=== PATIENT | female | born 2000 | race Caucasian/White ===

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

== ENCOUNTER 2023-04-23 17:28 | Emergency (ER) | payer OTHER, SELFPAY ==
[2023-04-23 17:29] VITALS: BP 138/80; PULSE 79; RESP 18; TEMP 37; O2SAT 100; BMI 44.2
--- NOTE | 2023-04-23 17:50 | EXP.UTC ---
Discharge Plan Disposition Patient Disposition: Home, Self-Care Condition: Good Prescriptions Prescriptions: New clindamycin HCl 300 mg capsule 300 mg PO Q8H 7 Days Qty: 21 0RF No Action ondansetron HCl 4 MG tablet 4 mg PO TIDP PRN (Reason: Nausea) Qty: 9 0RF oxymetazoline 15 ML bottle 15 ml NS BID PRN (Reason: Nasal Congestion) Qty: 15 0RF Referrals Follow up/Referrals: Provider,Referral, MD [Primary Care Provider] - See instructions Activity Restrictions/Add. Instructions Additional Instructions/Restrictions: Take medication as prescribed Use Aquaphor on the tattoo apply thin layer on tattoo 2-3 times daily Follow up with your Family Doctor if no improvement Return if needed Clinical Impressions Clinical Impression: Cellulitis Qualifiers: Site of cellulitis: unspecified site Qualified Code(s): L03.90 - Cellulitis, unspecified Instructions Patient Instructions: Cellulitis, Clindamycin Discharge ED Provider: Mary Snow [facility] [place] General Stated complaint: poss infected tattoo Mode of Arrival: Ambulatory Source of Information: Patient Limitations: No Limitations Time Seen by Provider: 04/23/23 17:50 Description of Symptoms (Recalled from Triage Doc. by RN): Patient reports possible infected tattoo. States she got the tattoo in a kitchen last Sunday. HEENT Symptoms (Recalled from RN notes): No Resp Symptoms (Recalled from RN notes): No Skin Symptoms (Recalled from RN notes): Yes MS Symptoms (Recalled from RN notes): No Functional Status (Recalled from RN notes): wnl History of Present Illness Provider Complaint: Patient states she got a tattoo in a kitchen not a shop last week States that since then it started looking red, swelling and having blister like lesions on it States that she thought it would get better but has continued to get worse so today she came in to see if she needed some antibiotics to help with the infection Related Data Previous Rx's Medication Instructions Recorded ondansetron HCl 4 mg tablet 4 mg PO TIDP PRN Nausea #9 tabs 08/11/21 oxymetazoline 0.05 % nasal spray 15 ml NS BID PRN Nasal Congestion 08/11/21 #15 mL clindamycin HCl 300 mg capsule 300 mg PO Q8H 7 days #21 caps 04/23/23 Allergies Allergy/AdvReac Type Severity Reaction Status Date / Time No Known Allergies Allergy Unverified 09/04/17 14:15 Worker's Comp Is this a Worker's Comp case?: No [facility] Disclaimer: The information contained in this section may have been updated after the patient was seen, as this information can be updated by other users. 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 Smoking Status: Never smoker alcohol intake: never substance use type: denies use current occupational status: employed Travel in the last 8 weeks: None ROS Obtained: Yes All systems reviewed & no additional complaints except as documented and Yes Systems reviewed as appropriate & no additional complaints except as documented Constitutional Constitutional: Reports system reviewed and no additional complaints, except as documented and Reports as per HPI ENT Ears, Nose, Mouth, and Throat: Reports system reviewed and no additional complaints, except as documented and Reports as per HPI Cardiovascular Cardiovascular: Reports system reviewed and no additional complaints, except as documented and Reports as per HPI Respiratory Respiratory: Reports system reviewed and no additional complaints, except as documented and Reports as per HPI Gastrointestinal Gastrointestingal: Reports system reviewed and no additional complaints, except as documented and as per HPI Integumentary/Breasts Skin/Breast: Reports system reviewed and no additional complaints, except as documented and Reports as per HPI Comments: redness, mild swelling and blisters on new tattoo that she got at home last week Physical Exam General General appearance: alert and in no apparent distress Respiratory Respiratory exam: Present normal lung sounds bilate
[2023-04-23 18:04] VITALS: BP 138/80; PULSE 79; RESP 18; TEMP 37; O2SAT 100
== END 2023-04-23 18:05 | disposition home or self-care (01) ==
PROVIDERS: Emergency Provider Nurse Practitioner
DX: L03.113 Cellulitis of right upper limb (principal)
CPT/HCPCS: 99204; 99212; G0463

== ENCOUNTER 2023-11-09 17:23 | Emergency (ER) | payer OTHER, SELFPAY ==
[2023-11-09] VITALS (9 sets, daily range): BP systolic 120–152; BP diastolic 80–93; PULSE 67–93; RESP 18–19; TEMP 36.8–36.9; O2SAT 96–98; BMI 44.6; BMI 446.5
[2023-11-09 17:47] LABS: Microscopic, Urine URINE MICROSCOPIC (MICROSCOPIC)
[2023-11-09 17:53] LABS: Coronavirus 19, PCR Not Detected (NotDetected); Influenza A, PCR Not Detected (NotDetected); Influenza B, PCR Not Detected (NotDetected)
[2023-11-09 17:55] LABS: Basophils % 0.2 % (0.1-2.0); Eosinophils # 0.1 K/mm3 (0.0-0.4); Eosinophils % 0.8 % (0.1-12.0); Hematocrit 44.9 % (37.0-47.0); Hemoglobin 14.4 g/dL (12.2-16.2); Lymphocytes # 1.7 K/mm3 (0.7-4.5); Lymphocytes % 12.9 % (10-50); Mean Corpuscular HGB Conc 32.1 g/dL (31.8-35.4); Mean Corpuscular Hemoglobin 27.9 pg (27.0-31.2); Mean Corpuscular Volume 86.9 fl (81-99); Mean Platelet Volume 7.8 fl (7.4-10.4); Monocytes # 0.6 K/mm3 (0.1-1.0); Neutrophils # 10.4 K/mm3 (1.8-7.8); Neutrophils % 81.1 % (37.0-80.0); Platelet Count 307 K/mm3 (142-424); Red Blood Count 5.17 M/mm3 (4.20-5.40); Red Cell Distribution Width 14.3 % (11.5-17.5); White Blood Count 12.8 K/mm3 (4.8-10.8)
[2023-11-09 18:05] LABS: Alanine Aminotransferase 35 U/L (12-78); Albumin Level 4.2 g/dl (3.5-5.0); Albumin/Globulin Ratio 1.2 (1.1-1.8); Alkaline Phosphatase 95 U/L (38-126); Amylase 59 U/L (30-110); Anion Gap 8.5 mEq/L (5-15); Aspartate Amino Transferase 32 U/L (14-36); Bilirubin,Total 0.4 mg/dl (0.2-1.3); Blood Urea Nitrogen 13 mg/dl (7-17); Calcium 9.2 mg/dl (8.4-10.2); Carbon Dioxide 30 mmol/L (22.0-30.0); Chloride 104 mmol/L (98-107); Creatinine Clearance Estimated 59 mL/min (50-200); Estimated Glomerular Filt Rate 52 ml/min (>60); GFR (African American) 63 ML/MIN (>60); Globulin 3.5 g/dL (1.3-3.2); Glucose 91 mg/dl (74-100); Lipase 39 U/L (23-300); Potassium 4.5 mmoL/L (3.5-5.1); Sodium 138 mmol/L (136-145); Total Protein,Serum 7.7 g/dl (6.3-8.2)
[2023-11-09 18:09] LABS: Appearance,Urine CLEAR (Clear); Bilirubin,Urine Negative (Negative); Blood, Urine 1+ (Negative); Color,Urine YELLOW (Yellow); Glucose,Urine (UA) Negative (Negative); Ketones,Urine Negative (Negative); Leukocyte Esterase,Urine Negative (Negative); Nitrate,Urine POSITIVE (Negative); PH,Urine 6.5 (5.0-8.5); Protein,Urine Negative (Negative); Urobilinogen,Urine 0.2 EU/dl (0.2)
--- NOTE | 2023-11-09 18:14 | PC.NURSE ---
rounded on pt states no complaints at this time mom at bs
[2023-11-09 18:50] LABS: HCG Qualitative, Serum Negative (Negative)
[2023-11-09 18:56] LABS: Bacteria,Urine 1+ /lpf; RBC,Urine Occasional #/hpf (0-3); Squamous Epithelial Cell,Urine Occasional #/hpf (0-5); WBC,Urine Occasional #/hpf (0-3)
--- NOTE | 2023-11-09 18:56 | CT_ITS ---
PROCEDURE INFORMATION: Exam: CT Abdomen And Pelvis Without Contrast Exam date and time: 11/09/2023 7:33 PM Age: 23 years old Clinical indication: Abdominal pain; Flank; Right; Additional info: Left flank pain TECHNIQUE: Imaging protocol: Computed tomography of the abdomen and pelvis without contrast. Radiation optimization: All CT scans at this facility use at least one of these dose optimization techniques: automated exposure control; mA and/or kV adjustment per patient size (includes targeted exams where dose is matched to clinical indication); or iterative reconstruction. COMPARISON: No relevant prior studies available. FINDINGS: Lungs: No consolidation, lung nodules, or pleural effusions. Liver: No mass. No evidence of fat deposition. No surrounding fluid. Gallbladder and bile ducts: No calcified stones or wall thickening. No ductal dilation. Pancreas: No masses. No ductal dilation. Spleen: . Spleen measures 13.5 cm. No masses or pericapsular fluid. 1 cm accessory splenule inferior to the splenic hilum. Adrenal glands: No mass. Kidneys and ureters: A 3 mm stone in the mid left ureter at the L5 level causes mild proximal hydroureteronephrosis no other kidney stones. No solid renal masses. Stomach and bowel: No intestinal masses, bowel wall thickening, or abnormal dilatation. Appendix: No evidence of appendicitis. Intraperitoneal space: No free air. No masses or significant fluid collection. Vasculature: No abdominal aortic aneurysm. No other significant abnormalities. Lymph nodes: No enlarged lymph nodes. Urinary bladder: No masses or asymmetric wall thickening. Reproductive: Anteverted uterus is appropriate in size and shape and has no myometrial masses. Bones/joints: Mild spinal stenosis at L5-S1 due to posterior osteophytes. No fractures or focal bone lesions. Soft tissues: No masses or other abnormalities. IMPRESSION: 1. Obstructing 3 mm stone in the mid left ureter. 2. Borderline splenomegaly. 3. No other acute findings in the abdomen and pelvis. 4. Mild spinal stenosis at L5-S1 due to posterior osteophytes
[2023-11-09] MEDS: ACETAMINOPHEN 1,000MG/100ML VIAL 1000 MG IV (19:27)
[2023-11-09] MEDS: CEFTRIAXONE 1 GM 1 GM in 0.9 % SODIUM CHLORIDE 50 ML IV (19:28)
[2023-11-09] MEDS: ONDANSETRON 4MG/2ML VIAL 4 MG IV (19:28)
[2023-11-09] MEDS: KETOROLAC 30MG/ML VIAL 15 MG IV (19:28)
[2023-11-09] MEDS: LACTATED RINGERS 1000ML 1,000 ML 999 ML IV (20:00)
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
== END 2023-11-09 20:46 | disposition home or self-care (01) ==
PROVIDERS: Emergency Provider Emergency Medicine; PCP Family Medicine
DX: N20.0 Calculus of kidney (principal); R10.9 Unspecified abdominal pain; R11.2 Nausea with vomiting, unspecified; R19.7 Diarrhea, unspecified; F17.200 Nicotine dependence, unspecified, uncomplicated
CPT/HCPCS: 74176; 80053; 81001; 82150; 83690; 84703; 85025; 87636; 96361; 96365; 96375; 99285; J0131; J0696; J2405

== ENCOUNTER 2024-07-14 06:37 | Emergency (ER) | payer OTHER, SELFPAY ==
[2024-07-14 06:38] VITALS: BP 135/90; PULSE 64; RESP 18; TEMP 36.6; O2SAT 95; BMI 40.7
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
[2024-07-14 06:42] VITALS: BP 135/90; PULSE 63; O2SAT 99
--- NOTE | 2024-07-14 06:48 | XR_ITS ---
PROCEDURE INFORMATION: Exam: XR Left Ribs with PA Chest Exam date and time: 07/14/2024 7:26 AM Age: 23 years old Clinical indication: Pain; Other: Left rib; Additional info: Chest pain, fall last week TECHNIQUE: Imaging protocol: Radiologic exam of the left ribs with PA chest. Views: 3 views COMPARISON: CR XR CHEST PORTABLE 08/11/2021 1:10 PM FINDINGS: Lungs: Unremarkable. No consolidation. Pleural spaces: Unremarkable. No pleural effusion. No pneumothorax. Heart/Mediastinum: Unremarkable. No cardiomegaly. Bones/joints: Unremarkable. IMPRESSION: No acute findings.
[2024-07-14] MEDS: ACETAMINOPHEN 500MG TAB 1000 MG PO (06:54)
[2024-07-14] MEDS: IBUPROFEN 600 MG TABLET PO (06:54)
[2024-07-14 07:27] LABS: Urine Pregnancy, HCG Qual. Negative (Negative)
--- NOTE | 2024-07-14 07:33 | PC.NURSE ---
RADIOLOGY NOTIFIED OF NEGATIVE TEST, XR ORDERS
--- NOTE | 2024-07-14 07:35 | PC.NURSE ---
PT TO XR
--- NOTE | 2024-07-14 07:45 | PC.NURSE ---
PT RETURNED FROM XR
--- NOTE | 2024-07-14 07:55 | PC.NURSE ---
PT PROVIDED TV REMOTE
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
--- NOTE | 2024-07-14 08:53 | PC.NURSE ---
DR CALHOUN AT BEDSIDE TO UPDATE PT
[2024-07-14 08:56] VITALS: BP 106/81; PULSE 61; RESP 18; TEMP 37.1; O2SAT 97
== END 2024-07-14 08:59 | disposition home or self-care (01) ==
PROVIDERS: Emergency Medicine; Emergency Provider Student in an Organized Health Care Education/Training Program
DX: R07.81 Pleurodynia (principal); M54.2 Cervicalgia; R07.82 Intercostal pain; W19.XXXA Unspecified fall, initial encounter; Y93.89 Activity, other specified; Y92.9 Unspecified place or not applicable
CPT/HCPCS: 71101; 81025; 99283

== ENCOUNTER 2024-08-02 15:51 | Emergency (ER) | payer OTHER, SELFPAY ==
[2024-08-02 15:53] VITALS: BP 132/79; PULSE 82; RESP 18; TEMP 36.8; O2SAT 100; BMI 35.9
--- NOTE | 2024-08-02 15:58 | XR_ITS ---
PROCEDURE INFORMATION: Exam: XR Left Foot Exam date and time: 08/02/2024 4:10 PM Age: 23 years old Clinical indication: Injury or trauma; Fall; Blunt trauma; Foot; Left TECHNIQUE: Imaging protocol: Radiologic exam of the left foot. Views: 3 or more views. COMPARISON: CR Ankle L 08/02/2024 4:09 PM FINDINGS: Bones/joints: There is no evidence of acute fracture or dislocation. Joint spaces appear preserved. Soft tissues: There is mild soft tissue prominence involving the midfoot raising the question of mild edema. No subcutaneous emphysema or radiopaque foreign bodies. IMPRESSION: No acute posttraumatic osseous injury.
--- NOTE | 2024-08-02 15:58 | XR_ITS ---
PROCEDURE INFORMATION: Exam: XR Left Ankle Exam date and time: 08/02/2024 4:09 PM Age: 23 years old Clinical indication: Injury or trauma; Fall; Blunt trauma; Ankle; Left TECHNIQUE: Imaging protocol: Radiologic exam of the left ankle. Views: 1 or 2 views. COMPARISON: No relevant prior studies available. FINDINGS: Bones/joints: There is no evidence of acute fracture or dislocation. Joint spaces appear preserved. Soft tissues: There is mild soft tissue edema. No subcutaneous emphysema or radiopaque foreign bodies. IMPRESSION: No acute posttraumatic osseous injury.
--- NOTE | 2024-08-02 16:10 | HMH.EDGENADL ---
Discharge Plan Disposition Patient Disposition: Home, Self-Care Condition: Good Prescriptions Prescriptions: No Action metformin 500 mg tablet extended release 24 hr 500 mg PO DAILY escitalopram oxalate 10 mg tablet 10 mg PO DAILY tamsulosin [Flomax] 0.4 mg capsule 0.4 mg PO DAILY Qty: 10 0RF methocarbamol 500 mg tablet 500 mg PO Q6H PRN (Reason: pain) Qty: 30 0RF lidocaine 5 % adhesive patch,medicated 1 patch topical DAILY PRN (Reason: pain) Qty: 30 0RF Rx Instructions: leave on most painful area for up to 12 hrs Referrals Follow up/Referrals: Shivani Delgado PA [Primary Care Provider] - See instructions Activity Restrictions/Add. Instructions Additional Instructions/Restrictions: Weight bearing as tolerated rest Ice with cold pack for 20 minutes remove may repeat for comfort every hour Eulogio wrap for support and swelling no less in the shower. Be sure not too tight but not to lose either Elevate with ankle above your heart as much as possible to help reduce swelling and therefore pain Ibuprofen every 6 hours as needed for pain or inflammation. If needs something more you can take Tylenol every 4 hours as needed as long as her primary care has told he was okayed for you to take both. If improving any do not need to follow-up you can bring begin exercising 2-3 weeks after injury. Follow-up immediately if new or worsening symptoms or no noticeable improvement over the next 3-5 days. call ortho if no improvement Clinical Impressions Clinical Impression: Left ankle strain Qualifiers: Encounter type: initial encounter Qualified Code(s): S96.912A - Strain of unspecified muscle and tendon at ankle and foot level, left foot, initial encounter Stand Alone Forms Stand Alone Forms: Work/School Release Instructions Patient Instructions: DI for Ankle Sprain Print Language Print Language: Italian Discharge ED Provider: Que Nice General Adult HPI <Ana Canseco ([facility]), IMMUNOLOGIST - Last Filed: 08/02/24 16:50> General Chief complaint: Extremity Injury, Lower Stated complaint: ao 08/01 Left ankle pain Time Seen by Provider: 08/02/24 15:58 Mode of Arrival: Ambulatory Source of Information: Patient Limitations: No Limitations Description of Symptoms (Recalled from ER Triage Doc. by RN): left ankle pain. History of Present Illness HPI narrative: 23-year-old female presents for left ankle pain. Patient states last night she was going up steps and her ankle turned. Related Data Home Medications ?Medication ?Instructions ?Recorded ?Confirmed escitalopram oxalate 10 mg tablet 10 mg PO DAILY 11/09/23 11/09/23 metformin 500 mg tablet,extended 500 mg PO DAILY 11/09/23 11/09/23 release 24 hr Previous Rx's ?Medication ?Instructions ?Recorded tamsulosin 0.4 mg capsule (Flomax) 0.4 mg PO DAILY #10 caps 11/09/23 lidocaine 5 % topical patch 1 patch topical DAILY PRN pain #30 07/14/24 ea methocarbamol 500 mg tablet 500 mg PO Q6H PRN pain #30 tabs 07/14/24 Allergies Allergy/AdvReac Type Severity Reaction Status Date / Time No Known Allergies Allergy Verified 11/09/23 17:52 PFSH <Ana Marx[facility]), IMMUNOLOGIST - Last Filed: 08/02/24 16:50> PFS Disclaimer: The information contained in this section may have been updated after the patient was seen, as this information can be updated by other users. 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: Never smoker alcohol intake: never substance use type: denies use current occupational status: employed Travel in the last 8 weeks: None Other Medical History Have you received the Flu Vaccine for this season: No Have you received the Pneumonia Vaccine: No <Ana Marx[facility] IMMUNOLOGIST - Last Filed: 08/02/24 16:50> ROS Obtained: Yes Systems reviewed as appropriate & no additional complaints except as documented Musculoskeletal Musculoskeletal: Reports system reviewed and no additional complaints, except as documented, Reports as per HPI, Reports joint swelling and Reports limited range of motion Physical Exam <Ana Marx[facility]), IMMUNOLOGIST - Last Filed: 08/02/24 16:50> General General appearance: alert and in no apparent distress ENT ENT exam: Present normal exam Respiratory Respiratory exam: Present normal lung sounds bilaterally Cardiovascular Cardiovascular exam: Present regular rate and normal rhythm Extremities Exam Extremities exam: Present normal inspection, tenderness, normal capillary refill and edema Expanded Lower Extremity Exam Left: Ankle image: 1. Swelling and tender Neurological Exam Neurological exam: Present alert and oriented X3 Skin Skin exam: Present warm and intact Medical Decision Making <Fabricioelle Canseco ([facility])ASHA - Last Filed: 08/02/24 16:50> Medical Records Medical records reviewed: Yes I reviewed the patient's medical records. Screening: Per USPSTF and CDC recommendations, given the prevalence of disease in our region, it is our hospital?s policy to screen for HIV and viral Hepatitis for all patients aged 18 and over and those with ongoing risk factors. Jose Rafael Inquiry Pt receiving controlled substance: No Jose Rafael was queried for this patient: No Vital Signs: 08/02/24 15:53 08/02/24 16:52 Temperature 98.3 F 98.1 F Temperature Source Oral Pulse Rate 82 Pulse Rate [Right] 82 Respiratory Rate 18 18 Blood Pressure 134/77 Blood Pressure [Right Arm] 132/79 Blood Pressure Mean [Right Arm] 96 02 Sat by Pulse Oximetry 100 Orders (Tests/Meds): ORDERS Category Date Time Status XR ankle LT 2V Stat Exams 08/02/24 15:58 Completed XR foot LT min 3V Stat Exams 08/02/24 15:58 Completed Radiology Data #1: Image(s): Ankle Image Reviewed: Yes I reviewed the patient's radiology results Preliminary Findings: Normal/NAD Medical Decision Narrative: In summary patient is a 23-year-old female who presents to the emergency department for evaluation of left ankle pain. Patient is hemodynamically stable upon arrival, afebrile. Left ankle and foot swelling. Differential diagnosis includes sprain versus fracture. Initial workup will be conducted with x-rays of ankle and foot. Initial inventions include x-rays. Initial workup reviewed by me imaging unremarkable negative for fracture. Given this Eulogio wrap applied. I informally interpreted patient's ankle and foot x-ray <Que Nice MD - Last Filed: 08/02/24 19:48> Vital Signs: 08/02/24 15:53 08/02/24 16:52 Temperature 98.3 F 98.1 F Temperature Source Oral Pulse Rate 82 Pulse Rate [Right] 82 Respiratory Rate 18 18 Blood Pressure 134/77 Blood Pressure [Right Arm] 132/79 Blood Pressure Mean [Right Arm] 96 02 Sat by Pulse Oximetry 100 Orders (Tests/Meds): ORDERS Category Date Time Status XR ankle LT 2V Stat Exams 08/02/24 15:58 Completed XR foot LT min 3V Stat Exams 08/02/24 15:58 Completed Medical Decision Narrative: In summary patient is a 23-year-old female who presents to the emergency department for evaluation of left ankle pain. Patient is hemodynamically stable upon arrival, afebrile. Left ankle and foot swelling. Differential diagnosis includes sprain versus fracture. Initial workup will be conducted with x-rays of ankle and foot. Initial inventions include x-rays. Initial workup reviewed by me imaging unremarkable negative for fracture. Given this Eulogio wrap applied. I informally interpreted patient's ankle and foot x-ray and was negative for any acute pathology I was consulted by the MINDY, and we discussed the complexity of the problems being addressed. I approved the treatment and management plan for this patient's care in the Emergency Department, thus performing a substantive portion of the medical decision making. Que Nice MD Critical Care <Ana Canseco ([facility]), IMMUNOLOGIST - Last Filed: 08/02/24 16:50> Critical Care Time Critical Care Time: No
--- NOTE | 2024-08-02 16:16 | PC.NURSE ---
pt to xr
--- NOTE | 2024-08-02 16:25 | PC.NURSE ---
pt returned from xr
[2024-08-02 16:52] VITALS: BP 134/77; PULSE 82; RESP 18; TEMP 36.7; O2SAT 99
== END 2024-08-02 16:56 | disposition home or self-care (01) ==
PROVIDERS: Emergency Provider Emergency Medicine; PCP Physician Assistant
DX: M25.572 Pain in left ankle and joints of left foot (principal); S96.912A Strain of unspecified muscle and tendon at ankle and foot level, left foot, initial encounter; X50.9XXA Other and unspecified overexertion or strenuous movements or postures, initial encounter; Y93.9 Activity, unspecified; Y92.9 Unspecified place or not applicable
CPT/HCPCS: 73600; 73630; 99283

== ENCOUNTER 2024-12-02 01:11 | Emergency (ER) | payer OTHER, SELFPAY ==
--- NOTE | 2024-12-02 01:36 | HMH.EDGENADL ---
Discharge Plan Disposition Patient Disposition: Home, Self-Care Prescriptions Prescriptions: New sulfamethoxazole-trimethoprim 800-160 mg tablet 1 tab PO BID 7 Days Qty: 14 0RF No Action metformin 500 mg tablet extended release 24 hr 500 mg PO DAILY escitalopram oxalate 10 mg tablet 10 mg PO DAILY tamsulosin [Flomax] 0.4 mg capsule 0.4 mg PO DAILY Qty: 10 0RF methocarbamol 500 mg tablet 500 mg PO Q6H PRN (Reason: pain) Qty: 30 0RF lidocaine 5 % adhesive patch,medicated 1 patch topical DAILY PRN (Reason: pain) Qty: 30 0RF Rx Instructions: leave on most painful area for up to 12 hrs Referrals Follow up/Referrals: Shivani Delgado PA [Primary Care Provider] - See instructions Activity Restrictions/Add. Instructions Additional Instructions/Restrictions: Please take antibiotics as prescribed for treatment of urinary tract infection. Please follow-up with your primary care provider. Please return to the emergency department if you develop any new or worsening symptoms or become concerned for your health. Clinical Impressions Clinical Impression: Pyelonephritis Instructions Patient Instructions: DI for Urinary Tract Infection (UTI), DI for Urinary Tract Infection in Children Print Language Print Language: Yoruba Discharge ED Provider: Orlin Montanez General Adult HPI General Chief complaint: Urogenital-Female Stated complaint: dark urine, possible blood, pain, burning pelvic Time Seen by Provider: 12/02/24 01:36 History of Present Illness HPI narrative: 24-year-old female with history of kidney stone presents for persistent urinary symptoms. She was seen at another facility and there was some concern for UTI but she was not ultimately started on any antibiotics. Her dysuria and pain have worsened, she is having some flank pain bilaterally as well as suprapubic pain. Denies any fever at home Related Data Home Medications ?Medication ?Instructions ?Recorded ?Confirmed escitalopram oxalate 10 mg tablet 10 mg PO DAILY 11/09/23 11/09/23 metformin 500 mg tablet,extended 500 mg PO DAILY 11/09/23 11/09/23 release 24 hr Previous Rx's ?Medication ?Instructions ?Recorded tamsulosin 0.4 mg capsule (Flomax) 0.4 mg PO DAILY #10 caps 11/09/23 lidocaine 5 % topical patch 1 patch topical DAILY PRN pain #30 07/14/24 ea methocarbamol 500 mg tablet 500 mg PO Q6H PRN pain #30 tabs 07/14/24 sulfamethoxazole 800 1 tab PO BID 7 days #14 tabs 12/02/24 mg-trimethoprim 160 mg tablet Allergies Allergy/AdvReac Type Severity Reaction Status Date / Time No Known Allergies Allergy Verified 11/09/23 17:52 [facility] Disclaimer: The information contained in this section may have been updated after the patient was seen, as this information can be updated by other users. 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 day smoker alcohol intake: never substance use type: denies use current occupational status: employed Travel in the last 8 weeks: None Other Medical History Have you received the Flu Vaccine for this season: No Have you received the Pneumonia Vaccine: No ROS Obtained: Yes All systems reviewed & no additional complaints except as documented Physical Exam General General appearance: alert and in no apparent distress Head Head exam: atraumatic and normocephalic Eye Eye exam: Present normal appearance, PERRL and EOMI ENT ENT exam: Present normal oropharynx and normal external ear exam Neck Neck exam: Present normal inspection and full ROM Chest Chest inspection: Present normal inspection and symmetric chest wall rise; Absent tenderness Respiratory Respiratory exam: Present normal lung sounds bilaterally; Absent respiratory distress Cardiovascular Cardiovascular exam: Present regular rate and normal rhythm Abdominal Exam Abdominal exam: Present soft; Absent distention, tenderness or guarding Extremities Exam Extremities exam: Present normal inspection; Absent edema or joint swelling Back Exam Back exam: Present normal inspection, CVA tenderness (R) and CVA tenderness (L) Neurological Exam Neurological exam: Present alert and oriented X3; Absent motor sensory deficit Psychiatric Psychiatric exam: Present normal affect and normal mood Skin Skin exam: Present warm, dry and normal color Lymphatic Lymphatic Findings: no adenopathy Medical Decision Making Medical Records Medical records reviewed: Yes I reviewed the patient's medical records. Screening: Per USPSTF and CDC recommendations, given the prevalence of disease in our region, it is our hospital?s policy to screen for HIV and viral Hepatitis for all patients aged 18 and over and those with ongoing risk factors. Jose Rafael Inquiry Pt receiving controlled substance: No Jose Rafael was queried for this patient: No Vital Signs: 12/02/24 01:39 12/02/24 04:16 Temperature 98.3 F 98.0 F Temperature Source Oral Pulse Rate 68 Pulse Rate [Apical] 74 Respiratory Rate 20 18 Blood Pressure 118/74 Blood Pressure [Right Arm] 128/74 Blood Pressure Mean [Right Arm] 92 02 Sat by Pulse Oximetry 98 Oxygen Delivery Method Room Air Room Air Lab Data Lab results reviewed: Yes I reviewed the patient's lab results. Lab Results 12/02/24 02:10: WBC 16.9 H, RBC 4.85, Hgb 13.5, Hct 40.2, MCV 82.9, MCH 27.8, MCHC 33.6, RDW 13.1, Plt Count 339, MPV 9.7, Neut % (Auto) 63.9, Lymph % (Auto) 28.6, [place] % (Auto) 5.7, Eos % (Auto) 1.3, Baso % (Auto) 0.3, Neut # (Auto) 10.8 H, Lymph # (Auto) 4.8 H, [place] # (Auto) 1.0, Eos # (Auto) 0.2, Baso # (Auto) 0.1, Total Counted 100, Neutrophils % (Manual) 64, Lymphocytes % (Manual) 32, Eosinophils % (Manual) 3, Basophils % (Manual) 1.0, Platelet Estimate Normal, RBC Morphology Normal, Sodium 137, Potassium 4.4, Chloride 107, Carbon Dioxide 26, Anion Gap 8.4, BUN 12, Creatinine 0.70, Estimated Creat Clear 217, Estimated GFR 105, Est GFR ( Amer) 127, Glucose 95, Calcium 9.3, Total Bilirubin 0.5, AST 28, ALT 21, Alkaline Phosphatase 78, Total Protein 7.9, Albumin 4.5, Globulin 3.4 H, Albumin/Globulin Ratio 1.3, Serum HCG, Qual Negative 12/02/24 02:53: Urine Color [place], Urine Appearance Clear, Urine pH 5.0, Ur Specific [place] >= 1.030, Urine Protein 3+ A, Urine Glucose (UA) 1+, Urine Ketones Trace, Urine Blood Negative, Urine Nitrate Positive A, Urine Bilirubin Negative, Urine Urobilinogen 4.0, Ur Leukocyte Esterase 3+ A, Urine RBC 5-10, Urine WBC 10-20, Ur Squamous Epith Cells 5-10, Calcium Oxalate Crystal 2+, Urine Bacteria 1+, Urine Mucus 1+ 12/02/24 02:10 12/02/24 02:10 Orders (Tests/Meds): ED MEDICATIONS Discontinued Medications Generic Name Dose Route Start Last Admin Trade Name Freq PRN Reason Stop Dose Admin Ceftriaxone Sodium 1 gm/ 50 mls @ 100 mls/hr 12/02/24 03:21 12/02/24 03:32 Sodium Chloride IV 12/02/24 03:50 100 mls/hr ONCE ONE Administration Iopamidol 75 ml 12/02/24 03:01 12/02/24 03:01 Iopamidol-370 (76%);100ml Bottle IV 12/02/24 03:02 75 ml ONCE ONE Administration Sodium Chloride 10 ml 12/02/24 03:01 12/02/24 03:02 Sodium Chloride 0.9% 10ml Syr (Rad Only) IV 01/01/25 03:00 10 ml NEEDED PRN Administration Maintain IV Site ORDERS Category Date Time Status CT abdomen pelvis w con Stat Cat Scan 12/02/24 01:43 Completed CBC w/Auto Diff [Complete Blood Count Auto Diff] Stat Lab 12/02/24 02:10 Completed CMP [Comprehensive Metabolic Panel] Stat Lab 12/02/24 02:10 Completed HCG Qualitative, Serum Stat Lab 12/02/24 02:10 Completed UA [Urinalysis and Microscopic] Stat Lab 12/02/24 02:53 Completed Urine Culture Stat Micro 12/02/24 02:53 Received Medical Decision Narrative: 24-year-old female with history of kidney stone presents with multiple days of dysuria and flank pain. History obtained from patient and family. on arrival, patient is [afebrile, hemodynamically stable, satting appropriately, alert, oriented x4, GCS 15], moving all extremities spontaneously. Full physical exam performed and significant for bilateral flank tenderness Differential includes but is not limited to UTI, pyelonephritis, kidney stone, . Workup initiated including CBC CMP UA test CT abdomen pelvis IV contrast to assess for stones. On re-evaluation, patient [remains afebrile, HD stable.] Laboratory workup independently interpreted by me and significant for negative test. Mild leukocytosis, urinalysis consistent with infection. Imaging independently interpreted by me and significant for no evidence of kidney stone or renal enhancement. See radiology read for full review of final results. Given patient history, exam and workup, patient's presentation most likely represents pyelonephritis. Patient was initiated on IV ceftriaxone for coverage of acute complicated UTI and discharged with prescription for Bactrim. She was discharged in stable condition return precautions. Procedures Risk/Benefits of Procedure(s) Were Explained: Yes Critical Care Critical Care Time Critical Care Time: No
[2024-12-02 01:39] VITALS: BP 128/74; PULSE 74; RESP 20; TEMP 36.8; O2SAT 98; BMI 41.1
--- NOTE | 2024-12-02 01:43 | CT_ITS ---
PROCEDURE INFORMATION: Exam: CT Abdomen And Pelvis With Contrast Exam date and time: 12/02/2024 2:57 AM Age: 24 years old Clinical indication: Abdominal pain; Additional info: Flank pain urinary symptoms TECHNIQUE: Imaging protocol: Computed tomography of the abdomen and pelvis with contrast. Radiation optimization: All CT scans at this facility use at least one of these dose optimization techniques: automated exposure control; mA and/or kV adjustment per patient size (includes targeted exams where dose is matched to clinical indication); or iterative reconstruction. Contrast material: ISOVUE; Contrast volume: 75 ml; Contrast route: IV; COMPARISON: CT ABDOMEN PELVIS WO CON 11/09/2023 7:33 PM FINDINGS: Liver: Normal. No mass. Gallbladder and biliary ducts: Normal. No calcified stones. No ductal dilation. Pancreas: Normal. No ductal dilation. Spleen: Normal. No splenomegaly. Adrenal glands: Normal. No mass. Kidneys and ureters: Normal. No hydronephrosis. Stomach and bowel: Unremarkable. No obstruction. No mucosal thickening. Appendix: No evidence of appendicitis. Intraperitoneal space: Unremarkable. No free air. No significant fluid collection. Vasculature: Unremarkable. No abdominal aortic aneurysm. Lymph nodes: Unremarkable. No enlarged lymph nodes. Urinary bladder: Unremarkable as visualized. Reproductive: Unremarkable as visualized. Bones/joints: Unremarkable. No acute fracture. Soft tissues: Unremarkable. IMPRESSION: 1. No acute findings. 2. No evidence of renal stone or obstruction.
[2024-12-02 02:35] LABS: Basophils # 0.1 K/mm3 (0-0.2); Basophils % 0.3 % (0.1-2.0); Eosinophils # 0.2 K/mm3 (0.0-0.4); Eosinophils % 1.3 % (0.1-12.0); Hematocrit 40.2 % (37.0-47.0); Hemoglobin 13.5 g/dL (12.2-16.2); Lymphocytes # 4.8 K/mm3 (0.7-4.5); Lymphocytes % 28.6 % (10-50); Mean Corpuscular HGB Conc 33.6 g/dL (31.8-35.4); Mean Corpuscular Hemoglobin 27.8 pg (27.0-31.2); Mean Corpuscular Volume 82.9 fl (81-99); Mean Platelet Volume 9.7 fl (7.4-10.4); Monocytes % 5.7 % (1.7-9.3); Neutrophils # 10.8 K/mm3 (1.8-7.8); Neutrophils % 63.9 % (37.0-80.0); Platelet Count 339 K/mm3 (142-424); Red Blood Count 4.85 M/mm3 (4.20-5.40); Red Cell Distribution Width 13.1 % (11.5-17.5); White Blood Count 16.9 K/mm3 (4.8-10.8)
[2024-12-02 02:36] LABS: Albumin Level 4.5 g/dl (3.5-5.0); Chloride 107 mmol/L (98-107); Sodium 137 mmol/L (136-145)
[2024-12-02 02:37] LABS: Potassium 4.4 mmoL/L (3.5-5.1)
[2024-12-02 02:39] LABS: Alanine Aminotransferase 21 U/L (12-78); Albumin/Globulin Ratio 1.3 (1.1-1.8); Alkaline Phosphatase 78 U/L (38-126); Anion Gap 8.4 mEq/L (5-15); Aspartate Amino Transferase 28 U/L (14-36); Bilirubin,Total 0.5 mg/dl (0.2-1.3); Blood Urea Nitrogen 12 mg/dl (7-17); Calcium 9.3 mg/dl (8.4-10.2); Carbon Dioxide 26 mmol/L (22.0-30.0); Creatinine Clearance Estimated 217 mL/min (50-200); Estimated Glomerular Filt Rate 105 ml/min (>60); GFR (African American) 127 ML/MIN (>60); Globulin 3.4 g/dL (1.3-3.2); Glucose 95 mg/dl (74-100); Total Protein,Serum 7.9 g/dl (6.3-8.2)
[2024-12-02 02:40] LABS: HCG Qualitative, Serum Negative (Negative)
[2024-12-02 02:41] LABS: MANUAL DIFFERENTIAL MANUAL DIFFERENTIAL (MANUAL DIFF)
[2024-12-02 02:57] LABS: Microscopic, Urine URINE MICROSCOPIC (MICROSCOPIC)
[2024-12-02] MEDS: IOPAMIDOL-370 (76%);100ML BOTTLE 75 ML IV (03:01)
[2024-12-02] MEDS: SODIUM CHLORIDE 0.9% 10ML SYR (RAD ONLY) 10 ML IV (03:02)
[2024-12-02 03:18] LABS: Appearance,Urine Clear (Clear); Color,Urine Orange (Yellow)
[2024-12-02 03:19] LABS: Blood, Urine Negative (Negative); Glucose,Urine (UA) 1+ (Negative); Ketones,Urine Trace (Negative); Nitrate,Urine POSITIVE (Negative); Protein,Urine 3+ (Negative); Specific Gravity, Urine >= 1.030 (1.005-1.030)
[2024-12-02 03:20] LABS: Bilirubin,Urine Negative (Negative); Leukocyte Esterase,Urine 3+ (Negative)
[2024-12-02 03:22] LABS: Bacteria,Urine 1+ /lpf; Calcium Oxalate Crystals,Urine 2+ /lpf; Mucus,Urine 1+ /lpf
[2024-12-02] MEDS: CEFTRIAXONE 1 GM 1 GM in 0.9 % SODIUM CHLORIDE 50 ML IV (03:32)
[2024-12-02 04:08] LABS: Eosinophils % 3 % (0-3); Lymphocytes % 32 % (10-50); Neutrophils % 64 % (42-76); Total Cells Counted 100
[2024-12-02 04:09] LABS: Platelet Estimate Normal; RBC Morphology Normal
[2024-12-02 04:16] VITALS: BP 118/74; PULSE 68; RESP 18; TEMP 36.7; O2SAT 99
== END 2024-12-02 04:16 | disposition home or self-care (01) ==
PROVIDERS: Emergency Provider Emergency Medicine; PCP Physician Assistant
DX: N12 Tubulo-interstitial nephritis, not specified as acute or chronic (principal); R30.0 Dysuria; R10.2 Pelvic and perineal pain; R10.9 Unspecified abdominal pain; Z72.0 Tobacco use
CPT/HCPCS: 74177; 80053; 81001; 84703; 85007; 85025; 85027; 87086; 96365; 99285; J0696; Q9967

== ENCOUNTER 2025-02-24 09:55 | Outpatient (CLI) | payer OTHER, SELFPAY ==
--- OUTSIDE RECORDS SUMMARY | 2025-02-24 10:02 | XMS_ITS | Clinical Summary ---
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 Name Role Phone MonroePaola franco Sarah THURMAN Primary Care Provider Allergies No known active allergies 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 Tobacco Use Types Packs/Day Years Used Date Smoking Tobacco: Never Smokeless Tobacco: Never Alcohol Use Standard Drinks/Week Comments Never 0 (1 standard drink = 0.6 oz pur e alcohol) Comments Unknown Sex and Gender Information Value Date Recorded Sex Assigned at Not on file Legal Sex Female 1:28 PM EST Gender Identity Not on file Sexual Orientation Not on file Last Filed Vital Signs Vital Sign Reading Time Taken Comments Blood Pressure 122/85 09/07/2021 6:58 PM EST Pulse 78 09/07/2021 6:58 PM EST Temperature 36.4 C (97.6 F) 09/07/2021 6:58 PM EST Respiratory Rate 16 09/07/2021 6:58 PM EST Oxygen Saturation 97% 09/07/2021 6:58 PM EST Inhaled Oxygen Concentration - - Weight - - Height - - Body Mass Index - - Plan of Treatment Not on file Insurance [employer] [facility] MEDICAID Care Teams Rivet Driver Relationship Specialty Start Date End Date Paola Ham DO [address] [place] [address] PCP - General 09/07/21
[2025-02-24 11:17] LABS: HIV Combo NEGATIVE (Negative)
[2025-02-24 11:31] LABS: Hepatitis C Ab Qual. W/ RFX NEGATIVE (Negative)
[2025-02-24 12:22] LABS: RPR W/RFX Titers Nonreactive (Nonreactive)
[2025-02-24 13:36] LABS: Hemoglobin A1C 5.3 % (4.0-6.0)
[2025-02-25 08:37] LABS: Hepatitis B Surface Antigen Negative (Negative)
[2025-02-28 08:21] LABS: HSV-1 DNA Negative (Negative); HSV-2 DNA Negative (Negative)
== END 2025-02-24 23:59 | disposition home or self-care (01) ==
LOC: LAB 09:57
PROVIDERS: PCP Physician Assistant; Visit Provider Obstetrics & Gynecology
DX: N89.8 Other specified noninflammatory disorders of vagina (principal); N90.89 Other specified noninflammatory disorders of vulva and perineum; E66.9 Obesity, unspecified
CPT/HCPCS: 36415; 83036; 86592; 86803; 87340; 87389; 87529